=== PATIENT | male | born 1990 | race Caucasian/White ===

== ENCOUNTER 2024-08-31 11:27 | Emergency (ER) | payer MEDICAID, SELFPAY ==
[2024-08-31 11:28] VITALS: PULSE 88; RESP 16; O2SAT 98; BMI 22.4
[2024-08-31 12:37] VITALS: BP 117/71; PULSE 99; RESP 18; TEMP 37.7; O2SAT 98
--- NOTE | 2024-08-31 12:42 | XR_ITS ---
Examination: PA lateral chest 2 views Technique: Upright PA lateral chest 2 views Exam date and time: August 31, 2024 at 1257 hrs. Indications: Coughing fever today Findings: Normal heart size No lobar pneumonia The osseous structures are intact Impression: No pneumonia identified
--- NOTE | 2024-08-31 12:42 | PD.EDRME ---
Rapid Medical Screening Exam RME Arrival date/time: 08/31/24 11:27 33 yo m present to ED for c/o of cough, vomiting for 1 day I have greeted and performed a focused initial assessment of this patient. A comprehensive ED assessment and evaluation of the patient, analysis of all test results, and completion of the medical decision making process will be conducted by additional ED providers. Chief Complaint: Nausea/Vomiting/Diarrhea Time Seen by Provider: 08/31/24 11:58 Vital signs: Vital Signs Temperature 99.9 F 08/31/24 12:37 Pulse Rate 99 08/31/24 12:37 Respiratory Rate 18 08/31/24 12:37 Blood Pressure 117/71 08/31/24 12:37 Pulse Oximetry (%) 98 08/31/24 12:37 Oxygen Delivery Method Room Air 08/31/24 12:37
[2024-08-31] MEDS: ONDANSETRON ODT 4 MG TABRAP PO (12:56)
[2024-08-31] MEDS: guaiFENesin/DM TABLET 2 EACH PO (13:22)
--- NOTE | 2024-08-31 13:46 | EDNOTE_ITS ---
Upper Respiratory Inf. RME/HPI General Chief Complaint: Nausea/Vomiting/Diarrhea Stated Complaint: N/V, ESPINO, COUGH W/ ABD PAIN Time Seen by Provider: 08/31/24 11:58 Arrival date/time: 08/31/24 11:27 33 year old male present to emergency room with c/o of cough, headache nausea/vomiting for 1 day. SEVERITY: Symptoms are described as being severe with limitations on activities of daily living CONTEXT: The patient is unable to identify any inciting events. DURATION/TIMING: The symptoms started approximately 1 day ASSOCIATED SYMPTOMS: The patient is unable to identify any other associated symptoms. MODIFYING FACTORS: The patient is unable to identify any alleviating or aggravating symptoms. PERTINENT ROS: no fevers, no chest pain/shortness of breath no dizziness no rash no loc/syncope episode no abd/back pain no dsyuria,urgency,frequency REVIEW OF SYSTEMS: See History of Present Illness - with the exception of those mentioned in the history of present illness, all other systems reviewed and reported as negative GENERAL: In general the patient is awake, interactive, [facility] HEAD/EYES/EARS/NOSE/THROAT: normo-cephalic, atraumatic, mucus membranes are moist, anicteric, palpebral conjunctiva is pink, trachea is midline. CARDIOVASCULAR: regular rate and regular rhythm, no murmurs, heart sounds are not distant, strong pulses in all four extremities that are equal and symmetric bilateral upper and lower extremities, normal capillary refill. CHEST/PULMONARY: normal chest rise and fall, good air movement, clear to auscultation bilaterally, normal inspiratory to expiratory ratios without evidence of respiratory distress. NECK: No midline/Paraspinal tenderness, no step off ROM/Strenght intact No Kernig and bruzinski sign. No trauma ABDOMEN: soft, not tender, no masses appreciated BACK: normal range of motion without pain. NEUROLOGICAL: cranio-facial features are symmetric, moves all four extremities equally without obvious limitations or weakness. EXTREMITY: no tenderness to palpation over the long bones or large joints of the bilateral upper and lower extremities, no joint swelling, no joint erythema, no signs of trauma, no unilateral leg swelling and no peripheral edema. SKIN: warm, dry, well-perfused, no jaundice, no rash, no telangiectasias or pe techia. PSYCH: calm, cooperative, no evidence of psychosis or agitation RME / HPI RME / HPI Narrative: 08/31/24 11:27 33 yo m present to ED for c/o of cough, vomiting for 1 day I have greeted and performed a focused initial assessment of this patient. A comprehensive ED assessment and evaluation of the patient, analysis of all test results, and completion of the medical decision making process will be conducted by additional ED providers. Related Data Previous Rx's ?Medication ?Instructions ?Recorded inhalational spacing device #1 ea 03/17/18 (Aerochamber Plus Flow-Vu) guaifenesin 100 mg/5 mL oral 200 mg (10 mL) PO Q4H PRN 08/31/24 liquid (Mucus-Chest Congestion) congestion #473 mL ibuprofen 800 mg tablet (IBU) 800 mg PO TID PRN fever or pain 08/31/24 #30 tabs oseltamivir 75 mg capsule (Tamiflu) 75 mg PO BID 5 day s #10 caps 08/31/24 Allergies Allergy/AdvReac Type Severity Reaction Status Date / Time No Known Allergies Allergy Verified 08/31/24 11:33 Course Course Course Narrative: Patient presenting with influenza like symptoms.? Obtained influenza A/B screen, which revealed positive influenza.? The following were considered in the patient's differential diagnosis but was not deemed to be consistent with patient's history of present illness and/or physical examination; meningitis, pharyngitis, otitis media, pneumonia, urinary tract infection, peritonsillar abscess, retropharyngeal abscess.? As patient does not present with any signs/symptoms of pneumonia or other complications,? CXR: NAD or further labwork at this time. Educated patient on diagnosis and natural course of influenza.? Supportive care and preventive measures were discussed.? Continue fluid hydration. Follow up with primary physician in 3-5 days if symptoms continue or new problems arise. Return if having persistent high fever, altered mental status, shortness of breath, uncontrolled vomiting, or other concerns.? ? first dose of influenza given Plan:? Prescribed tamiflu, cold medication, IBU 800mg? Advised patient on support therapies, including rest, advancement of fluids as tolerated, thorough handwashing w/ soap and H2O, taking OTC ibuprofen or acetaminophen as directed, OTC expectorant/antitussive/decongestants as directed. Advised patient to refrain from visiting work, school, or daycares or visiting women, elderly, or those w/ chronic illnesses. Advised patient to return with new or worsening symptoms. Quality Measures none Orders Category Date Time Status Bedside Influenza A&B Antigen Test NOW Care 08/31/24 12:42 Completed XR chest 2V Stat Exams 08/31/24 12:42 Completed Ondansetron Odt [Zofran Odt] Med 08/31/24 12:42 Discontinued 4 mg PO X1 ONE Oseltamivir [Tamiflu] Med 08/31/24 13:46 Discontinued 75 mg PO X1 ONE guaiFENesin/DM [Mucinex DM] Med 08/31/24 12:42 Discontinued 2 each PO X1 ONE Vital Signs Vital signs: Vital Signs Temperature 99.9 F 08/31/24 12:37 Pulse Rate 99 08/31/24 12:37 Respiratory Rate 18 08/31/24 12:37 Blood Pressure 117/71 08/31/24 12:37 Pulse Oximetry (%) 98 08/31/24 12:37 Oxygen Delivery Method Room Air 08/31/24 12:37 Upper Respiratory Infection Patient data External records reviewed:: [facility] previous records Clinical information provided by:: patient Social determinants that could affect healthcare access:: substance use Patient has the following chronic illnesses:: n/a How is presenting disease/condition affected by chronic disease/condition?: no chronic disease Evaluation data The following diagnostics were reviewed and interpreted by me:: lab results and radiology exam(s) Lab and/or radiology exams considered but not ordered:: n/a Interpretation Summary: xray: na strep negative + flu , first dose of tamiflu given prior to discharge Medications / Prescriptions Medications or Prescriptions considered but not ordered:: n/a Medication administrations:: Medication Administration History Discontinued Medications Guaifenesin/Dextromethorphan (Guaifenesin/Dm Tablet) 2 each PO X1 ONE Stop: 08/31/24 12:43 Last Admin: 08/31/24 13:22 Dose: 2 each Documented By: DESTIN Ondansetron HCl (Ondansetron Odt 4 Mg Tabrap) 4 mg PO X1 ONE; Protocol Stop: 08/31/24 12:43 Last Admin: 08/31/24 12:56 Dose: 4 mg Documented By: DESTIN Oseltamivir Phosphate (Oseltamivir 75 Mg Capsule) 75 mg PO X1 ONE Stop: 08/31/24 13:47 n/a Consultations Consultation(s) initiated? (list below): No Diagnosis Upper Respiratory Differential Diagnosis: upper respiratory infection, viral infection, influenza and other (pna) Most likely diagnosis given after review of the tests above:: flu Admission Indicated Admission indicated?: not indicated Admission Request Was there a request for admission?: No Disposition Plan Disposition Plan: Discharge Discharge Attestation Discharge Attestation: The patient and all family members were given an opportunity to ask questions and understood the discharge instructions. Discharge instructions specifically effects, indications for sooner follow up or return to the emergency department, and the expected course of current diagnosis. Patient condition: Stable Discharge Plan Plan Patient Disposition: HOME (Self Care) Health Concerns: Follow with PMD as directed Take tylenol or motrin as need Return to ED if sx worsen Prescriptions/Referrals Prescriptions/Med Rec: New oseltamivir [Tamiflu] 75 mg capsule 75 mg PO BID 5 Days Qty: 10 0RF ibuprofen [IBU] 800 mg tablet 800 mg PO TID PRN (Reason: fever or pain) Qty: 30 0RF guaifenesin [Mucus-Chest Congestion] 100 mg/5 mL liquid 200 mg PO Q4H PRN (Reason: congestion) Qty: 473 0RF No Action (DME) inhalational spacing device [Aerochamber Plus Flow-Vu] spacer See Dose Instructions .ROUTE .MEDSUPPLY Qty: 1 0RF Dose Instruction: As directed Rx Instructions: As directed Problem List Clinical Impression: Influenza Patient/Caregiver Discharge Instructions Education Materials: ED Influenza (Adult) Print Language: Croatian Stand Alone Forms: Gloria Award Info., Patient Portal Info Letter
[2024-08-31] MEDS: OSELTAMIVIR 75 MG CAPSULE PO (13:57)
== END 2024-08-31 14:10 | disposition home or self-care (01) ==
LOC: SERX 14:21
PROVIDERS: Emergency Provider Emergency Medicine
DX: J11.1 Influenza due to unidentified influenza virus with other respiratory manifestations (principal)
CPT/HCPCS: 71046; 87400; 99283; Q0162; A9270